=== PATIENT | male | born 1960 | race Caucasian/White ===

== ENCOUNTER 2020-12-03 13:52 | Day surgery (SDC) | payer OTHER ==
[~2020-12-03] VITALS: Ht 175.3 cm; Wt 82.8 kg
[2020-12-03] MEDS ORDERED: LOSA50 PO (14:31)
[2020-12-03] MEDS ORDERED: TAMS.4ER PO (14:32)
[2020-12-03] MEDS ORDERED: FINA5 (14:32)
== END 2020-12-03 16:40 | disposition home or self-care (01) ==
LOC: ORSCSDS 13:52
PROVIDERS: Internal Medicine Gastroenterology
PROC: 0DBH8ZX Excision of Cecum, Via Natural or Artificial Opening Endoscopic, Diagnostic (ICD-10-PCS; principal; 2020-12-03 15:15)
PROC: 0DBL8ZX Excision of Transverse Colon, Via Natural or Artificial Opening Endoscopic, Diagnostic (ICD-10-PCS; principal; 2020-12-03 15:15)
PROC: 0DBN8ZX Excision of Sigmoid Colon, Via Natural or Artificial Opening Endoscopic, Diagnostic (ICD-10-PCS; principal; 2020-12-03 15:15)
DX: R19.5 Other fecal abnormalities (principal); K63.5 Polyp of colon; D12.0 Benign neoplasm of cecum; D12.3 Benign neoplasm of transverse colon; K64.8 Other hemorrhoids; Z79.899 Other long term (current) drug therapy
CPT/HCPCS: 88305; J2704; J7120

== ENCOUNTER → 2023-02-17 | Outpatient (CLI) | payer OTHER ==
[~2023-02-17] MED LIST: FINA5; LOSA50 PO; TAMS.4ER PO
== END | disposition home or self-care (01) ==
LOC: LAB SHORT 09:00 → LAB 09:00
DX: R10.13 Epigastric pain (principal); R11.0 Nausea; R13.10 Dysphagia, unspecified
CPT/HCPCS: 87338